=== PATIENT | female | born 1965 | race Hispanic/Latino ===

== ENCOUNTER 2017-12-07 10:43 | Day surgery (SDC) | payer OTHER ==
[2017-12-06 11:50] VITALS: BMI 30.8
--- NOTE | 2017-12-06 16:46 | HP ---
HISTORY OF PRESENT ILLNESS: Marcia Holliday is a 52-year-old female referred by the Dr. Christianne henley. The patient lives in [place]. She speaks Divehi only. She has very supportive family a nd they are here with her. She has had several months of episodic right upper quadrant pain, epigast chun pain, back radiation associated with nausea. She had a gallbladder ultrasound noting cholelithia sis, very large gallstones without bile duct caliber, but with a sonographic positive Carbajal si gn. On 11/04/2017, she had a CBC, liver function test. Basic metabolic profile, H. pylori that were normal drawn in [place]. ALLERGIES: None. TOBACCO: None. ALCOHOL: None. MEDICATIONS: Listed as taking Zantac, but family states that she does not take medications. PAST SURGICAL HISTORY: C-sections. PAST MEDICAL HISTORY: Noncontributory. REVIEW OF SYSTEMS: Ten-point noncontributory. FAMILY HISTORY: One of the parents had gallbladder cancer, the other gallstones. There may be some confusion about gallstones and gallbladder cancer. No family history of coronary disease. PHYSICAL EXAMINATION: VITAL SIGNS: Weight 163 pounds, 58 inches, 136/86, 77 heart rate, 97.3 degrees. LUNGS: Clear to auscultation. CARDIAC: Regular rate and rhythm without murmur or gallop. ABDOMEN: Soft, tenderness in right upper quadrant with guarding, deep palpation, mildly positive Mur phy sign. EXTREMITIES: Unremarkable. No ankle edema, no venous stasis changes. Palpable pedal pulses, palpab le radial pulses. LYMPH: No lymphadenopathy in neck, axilla or groins. HEENT: Unremarkable. Neurologically intact. No focal deficits. Sclerae nonicteric. SKIN: Nonjaundiced. Skin color normal, turgor normal. ASSESSMENT AND PLAN: , acute cholecystitis, cholelithiasis. Recommend laparoscopic video gerson cystectomy. Preoperative antibiotics of Levaquin, scopolamine patch, Toradol, Ofirmev. Risk of chol ecystectomy including infection, bleeding, visceral, and biliary injury explained. Possible reoperat ion explained, questions answered.
[2017-12-07] MEDS ORDERED: Ketorolac Tromethamine 30 MG/ML VIAL ONE (12:03)
[2017-12-07] MEDS ORDERED: Levofloxacin 500 mg/D5W 100 ml Premix Bag ONE (12:03)
[2017-12-07] MEDS ORDERED: Fentanyl 100 MCG/2 ML VIAL ONE ×2 (12:23)
[2017-12-07] MEDS ORDERED: Bupivacaine HCl 0.5%/Epinephrine 1:200,000/PF 30 ml Vial ONE (12:25)
[2017-12-07] MEDS ORDERED: Iothalamate Meglumine 60% 50 ML VIAL FS ONE (12:25)
[2017-12-07] MEDS ORDERED: Scopolamine 1.5 mg/72 hour Patch ONE (12:34)
--- NOTE | 2017-12-07 13:54 | OP ---
PREOPERATIVE DIAGNOSES: Chronic cholecystitis, cholelithiasis. POSTOPERATIVE DIAGNOSES: Chronic cholecystitis, cholelithiasis. PROCEDURE: Laparoscopic video cholecystectomy. SURGEON: Angel Parrish M.D. ANESTHESIA: General. Local 0.5% Marcaine with epinephrine 30 mL. PROCEDURE IN DETAIL: The patient taken to the operating room where under general anesthesia, abdomen was prepared with ChloraPrep, draped in routine fashion. Local anesthetic infiltrated into skin and subcutaneous tissue about each port site. Infraumbilical incision made. Pneumoperitoneum to 15 mmH g obtained with the Veress needle, replacing it with a 5 port and video laparoscope inserted. Right subxiphoid incision made and 11 port placed. Right subcostal incision made, mid clavicular anterior axillary lines and 5 ports placed. Gallbladder fundus grasped with a sip reflected cephalad. Liver appeared to be normal. Infundibulum grasped and reflected laterally. Cystic artery and duct dissect ed free. Critical view obtained. Cystic artery and duct doubly clipped proximally, divided, and gal lbladder dissected free from the liver bed obtaining good hemostasis prior to division of final perit leavitt attachments. Gallbladder and contents removed and submitted to Pathology. There was a large s tone fragmented to enable removal. Good hemostasis ensured with the cautery. Irrigant and pneumoper itoneum evacuated. All this instruments removed and all skin incisions approximated with interrupted subdermal 4-0 Monocryl and DermaGlue applied.
[2017-12-07] MEDS ORDERED: Dexamethasone 20 MG/5 ML VIAL ONE (14:05)
[2017-12-07] MEDS ORDERED: PROPOFOL 200 MG/20 ML VIAL ONE (14:05)
[2017-12-07] MEDS ORDERED: Glycopyrrolate 0.2 MG/ML 5 ML SYRINGE ONE (14:05)
[2017-12-07] MEDS ORDERED: Lidocaine 1% PF 5 ML VIAL ONE (14:05)
[2017-12-07] MEDS ORDERED: Ondansetron HCl/PF 4 MG/2 ML Vial ONE (14:05)
[2017-12-07] MEDS ORDERED: Promethazine HCl 25 MG/ML VIAL ONE (14:06)
--- NOTE | 2017-12-07 15:42 | EKG ---
Test Reason : PREOP Blood Pressure : / mmHG Vent. Rate : 065 BPM Atrial Rate : 065 BPM P-R Int : 140 ms QRS Dur : 082 ms QT Int : 414 ms P-R-T Axes : 034 -14 000 degrees QTc Int : 430 ms Normal sinus rhythm Moderate voltage criteria for LVH, may be normal variant Borderline ECG No previous ECGs available Confirmed by DR. Aaron VICK MD ([id number]) on 12/07/2017 3:41:29 PM Referred By: KERVIN Confirmed By:DR. Aaron VICK MD
== END 2017-12-07 15:15 | disposition home or self-care (01) ==
LOC: SDC 10:43
PROVIDERS: ATTEND Specialist
PROC: 0FT44ZZ Resection of Gallbladder, Percutaneous Endoscopic Approach (ICD-10-PCS; principal; 2017-12-07)
DX: K80.12 Calculus of gallbladder with acute and chronic cholecystitis without obstruction (principal); Z79.899 Other long term (current) drug therapy
CPT/HCPCS: 88304; 93005; 93010; 96374; J0131; J0670; J1100; J1610; J1885; J1956; J2001; J2405; J2550; J2704; J3010; Q9961

== ENCOUNTER 2021-11-14 21:17 | Emergency (ER) | payer OTHER ==
[2021-11-14 22:58] LABS: #Basophils 0.1 thou/uL (0.0-0.2); #Eosinphils 0.6 thou/uL (0.0-0.7); #Lymphocytes 3.2 thou/uL (1.20-3.40); #Monocytes 0.6 thou/uL (0.11-0.59); #Neutrophils 7.5 thou/uL (1.40-6.50); %Basophils 0.5 % (0.0-1.0); %Eosinophils 5.2 % (0.0-10.0); %Lymphocytes 26.5 % (21.0-51.0); %Monocytes 5.3 % (0.0-10.0); %Neutrophils 62.4 % (42.0-75.0); Hemoglobin 12.9 g/dL (12.0-16.0); Mean Corpuscular HGB CONC 32.6 g/dL (32.0-36.0); Mean Corpuscular Hemoglobin 30.8 pg (27.0-31.0); Mean Corpuscular Volume 94.6 fL (78.0-98.0); Mean Platelet Volume 7.5 fL (7.4-10.4); Platelet Count 298 thou/uL (130-400); RBC Distribution Width 11.6 % (11.5-14.5); Red Blood Cell (RBC) Count 4.18 mill/uL (4.20-5.40); White Blood Cell (WBC) Count 12.1 thou/uL (4.8-10.8)
[2021-11-14 23:10] LABS: Bilirubin Negative (Negative); Blood, Urine Small (Negative); Glucose, Urine (Dipstick) Negative (Negative); Ketone, Urine Negative (Negative); Leukocyte Negative (Negative); Nitrite Negative (Negative); Protein, Urine (Dipstick) Negative (Neg-Trace); Specific Gravity, Urine 1.015 (1.005-1.030); Urobilinogen 0.2 mg/dL (Less than 2)
[2021-11-14 23:15] LABS: Clarity Clear (Clear); RBC/HPF 0-3 HPF (0-3); WBC/HPF 0-3 HPF (0-3)
[2021-11-14 23:16] LABS: Pregnancy Test - Urine (BHCG) Negative (Negative); Pregu Control Background? CLEAR/WHITE (CLR/WHITE); Pregu Control Bar Appear? YES (CONTROL BAR); Specific Gravity 1.015 (1.002-1.036)
[2021-11-14 23:19] LABS: ALT (SGPT) 13 U/L (8-55); AST (SGOT) 18 U/L (5-34); Albumin 4.5 g/dL (3.5-5.0); Alkaline Phosphatase 101 U/L (40-110); Anion Gap 16 mmol/L (10-20); BUN (Urea Nitrogen) 41 mg/dL (9.8-20.1); Bilirubin, Total 0.3 mg/dL (0.2-1.2); Calc. Creatinine Clearance 0 mL/min (70-130); Calcium 9.6 mg/dL (7.8-10.44); Carbon Dioxide 23 mmol/L (22-29); Chloride 104 mmol/L (98-107); Estimated GFR 25; Globulin 3.9 g/dL (2.4-3.5); Glucose 80 mg/dL (70-105); Potassium 4.1 mmol/L (3.5-5.1); Protein, Total 8.4 g/dL (6.0-8.3); Sodium 139 mmol/L (136-145)
[2021-11-14] MEDS ORDERED: Morphine 4 MG/ML VIAL ONE (23:36)
[2021-11-14] MEDS ORDERED: Ondansetron PF 4 MG/2 ML Vial ONE (23:37)
[2021-11-15 04:57] LABS: ALT (SGPT) 11 U/L (8-55); AST (SGOT) 17 U/L (5-34); Albumin 4.1 g/dL (3.5-5.0); Alkaline Phosphatase 89 U/L (40-110); Anion Gap 15 mmol/L (10-20); BUN (Urea Nitrogen) 36 mg/dL (9.8-20.1); Bilirubin, Total 0.3 mg/dL (0.2-1.2); Calc. Creatinine Clearance 0 mL/min (70-130); Calcium 8.9 mg/dL (7.8-10.44); Carbon Dioxide 20 mmol/L (22-29); Chloride 107 mmol/L (98-107); Estimated GFR 38; Globulin 3.7 g/dL (2.4-3.5); Glucose 90 mg/dL (70-105); Potassium 4.5 mmol/L (3.5-5.1); Protein, Total 7.8 g/dL (6.0-8.3); Sodium 137 mmol/L (136-145)
== END 2021-11-15 05:18 | disposition home or self-care (01) ==
LOC: ERS 21:17
DX: N20.2 Calculus of kidney with calculus of ureter (principal); E78.5 Hyperlipidemia, unspecified; E78.1 Pure hyperglyceridemia; I10 Essential (primary) hypertension
CPT/HCPCS: 36415; 74176; 80053; 81003; 81015; 81025; 85025; 96361; 96374; 96375; J2270; J2405

== ENCOUNTER 2022-07-23 11:37 | Outpatient (CLI) | payer OTHER | END 2022-07-23 11:38 | disposition home or self-care (01) | LOC: RAD 11:37 | PROVIDERS: ATTEND Neurological Surgery | DX: M48.061 Spinal stenosis, lumbar region without neurogenic claudication (principal); M47.816 Spondylosis without myelopathy or radiculopathy, lumbar region; M47.817 Spondylosis without myelopathy or radiculopathy, lumbosacral region | CPT/HCPCS: 72120 ==